=== PATIENT | female | born 1980 | race Caucasian/White ===

== ENCOUNTER 2017-03-22 04:57 | Emergency (ER) | payer MEDICARE, MEDICAID ==
[~2017-03-22] VITALS: Ht 167.6 cm; Wt 90.0 kg
[~2017-03-22 04:57] MED LIST: BACL-19 PO; BENZ1TAB61 PO; CITA20TA9 PO; DIAZ10TA PO; MELO15TA24 PO; ONDA4TAB7 PO; PANT40TA3 PO; PROM12.553 RC; ZIPR80CA2 PO
[2017-03-22] MEDS ORDERED: ONDANSETRON ODT 8 MG ONE (05:20)
[2017-03-22] MEDS ORDERED: ONDANSETRON ODT 4 MG PO ONE (05:30)
[2017-03-22 06:02] LABS: ASPARTATE AMINO TRANSFERASE 15 U/L (15-37); BLOOD UREA NITROGEN 10 mg/dL (7-18)
[2017-03-22] MEDS ORDERED: POTASSIUM CHLORIDE 20 MEQ TAB.ER.PRT ONE (06:25)
[2017-03-22] MEDS ORDERED: POTASSIUM CHLORIDE 20 MEQ TAB.ER.PRT PO ONE (06:30)
[2017-03-22] MEDS ORDERED: POTASSIUM CHLORIDE 20 MEQ in SODIUM CHLORIDE 0.9% 250 ML IV ONE (06:30)
[2017-03-22] MEDS ORDERED: SODIUM CHLORIDE 0.9% 1,000ML IVBOLUS ONE (06:30)
[2017-03-22 06:33] LABS: HEMATOCRIT 42.1 % (34.6-47.8); HEMOGLOBIN 14.1 g/dL (11.7-16.4); WHITE BLOOD COUNT 14.8 x10^3/uL (3.4-10)
[2017-03-22] MEDS ORDERED: PROCHLORPERAZINE 5 MG/ML, 2ML IM ONE (07:00)
[2017-03-22] MEDS ORDERED: HYDROmorphone 1 MG/ML, 1ML IV ONE (07:00)
[2017-03-22] MEDS ORDERED: HYDROmorphone 1 MG/ML, 1ML ONE (07:13)
[2017-03-22] MEDS ORDERED: PROCHLORPERAZINE 5 MG/ML, 2ML ONE (07:13)
[2017-03-22 07:24] VITALS: BP 143/89
[2017-03-22] MEDS ORDERED: PROCHLORPERAZINE 5 MG/ML, 2ML IVPush ONE (07:30)
== END 2017-03-22 08:11 | disposition home or self-care (01) ==
LOC: ED 05:30
DX: R10.9 Unspecified abdominal pain (principal); R11.2 Nausea with vomiting, unspecified; R19.7 Diarrhea, unspecified; Z87.891 Personal history of nicotine dependence
CPT/HCPCS: 36415; 80053; 83690; 85025; 96361; 96374; 96375; 99285; J0780; J1170; J7030; Q0162

== ENCOUNTER 2017-03-23 22:19 | Emergency (ER) | payer MEDICARE, MEDICAID ==
[~2017-03-23] VITALS: Ht 175.3 cm; Wt 86.2 kg
[2017-03-23 22:59] LABS: HEMATOCRIT 44.9 % (34.6-47.8); HEMOGLOBIN 14.9 g/dL (11.7-16.4); WHITE BLOOD COUNT 12.7 x10^3/uL (3.4-10)
[2017-03-23] MEDS ORDERED: KETOROLAC 30 MG/1 ML IVPush ONE (23:00)
[2017-03-23] MEDS ORDERED: SODIUM CHLORIDE 0.9% 1,000ML IVBOLUS ONE (23:00)
[2017-03-23] MEDS ORDERED: ONDANSETRON 2MG/ML, 2ML ONE (23:00)
[2017-03-23] MEDS ORDERED: KETOROLAC 30 MG/1 ML ONE (23:00)
[2017-03-23] MEDS ORDERED: ONDANSETRON 2MG/ML, 2ML IVPush ONE (23:00)
[2017-03-23 23:03] LABS: ASPARTATE AMINO TRANSFERASE 15 U/L (15-37); BLOOD UREA NITROGEN 8 mg/dL (7-18)
[2017-03-23] MEDS ORDERED: ZIPRASIDONE 20 MG INJ IM ONE ×2 (23:29→23:30)
[2017-03-24 00:18] LABS: PATH.CAST-FLAG NOT PRESENT; SPERM-FLAG NOT PRESENT; SRC-FLAG NOT PRESENT; XTAL-FLAG NOT PRESENT; YLC-FLAG NOT PRESENT
[2017-03-24] MEDS ORDERED: ONDANSETRON 2MG/ML, 2ML ONE (00:59)
[2017-03-24] MEDS ORDERED: MORPHINE SULFATE 4 MG/ML, 1ML ONE (00:59)
[2017-03-24] MEDS ORDERED: ONDANSETRON 2MG/ML, 2ML IVPush ONE (01:00)
[2017-03-24] MEDS ORDERED: MORPHINE SULFATE 4 MG/ML, 1ML IVPush PRN (01:00)
[2017-03-24 01:22] VITALS: BP 159/90
== END 2017-03-24 01:56 | disposition home or self-care (01) ==
LOC: ED 03-24 00:51
DX: A09 Infectious gastroenteritis and colitis, unspecified (principal); Z88.0 Allergy status to penicillin; Z87.891 Personal history of nicotine dependence
CPT/HCPCS: 36415; 80053; 81001; 83690; 84703; 85025; 87086; 96361; 96372; 96374; 96375; 96376; 99284; J1885; J2405; J3486; J7030

== ENCOUNTER 2019-05-10 18:27 | Emergency (ER) | payer MEDICARE, MEDICAID ==
[~2019-05-10] VITALS: Ht 162.6 cm; Wt 90.0 kg
[2019-05-10] MEDS ORDERED: PROMETHAZINE 25 MG/ML, 1ML IM ONE (19:00)
[2019-05-10] MEDS ORDERED: SODIUM CHLORIDE 0.9% 1,000ML IVBOLUS ONE ×2 (19:00→21:00)
[2019-05-10] MEDS ORDERED: MORPHINE SULFATE 4 MG/ML, 1ML IVPush PRN (19:00)
[2019-05-10] MEDS ORDERED: MORPHINE SULFATE 4 MG/ML, 1ML ONE (19:01)
[2019-05-10] MEDS ORDERED: PROMETHAZINE 25 MG/ML, 1ML ONE (19:01)
[2019-05-10 19:38] LABS: BASOPHILS % (AUTO) 0 % (0-1); EOSINOPHILS % (AUTO) 0 % (1-7); LYMPHOCYTES % (AUTO) 9 % (22-44); MD NO; MEAN CORPUSCULAR HGB CONC 33.2 g/dL (32.4-35.8); MEAN CORPUSCULAR VOLUME 96.4 fL (80-100); MONOCYTES # (AUTO) 0.27 x10^3/uL (0.2-0.8); MONOCYTES % (AUTO) 3 % (2-9); NEUTROPHILS % (AUTO) 88 % (42-75); PLATELET COUNT 235 x10^3/uL (130-400); RED BLOOD COUNT 3.99 x10^6/uL (3.82-5.3); RED CELL DISTRIBUTION WIDTH 13.2 % (9.6-15.2)
[2019-05-10 19:49] LABS: ALANINE AMINOTRANSFERASE 10 U/L (12-78); ALBUMIN 3.5 g/dL (3.4-5.0); ANION GAP 10 mmol/L (5-15); CALCIUM 8.9 mg/dL (8.5-10.1); CHLORIDE 114 mmol/L (98-107); CREATININE 1.21 mg/dL (0.55-1.02)
[2019-05-10 19:51] LABS: ALKALINE PHOSPHATASE 57 U/L (45-117); BILIRUBIN,TOTAL 0.5 mg/dL (0.2-1.0); TOTAL PROTEIN 7.3 g/dL (6.4-8.2)
[2019-05-10 20:46] LABS: RAPID INFLUENZA A Negative (Negative); RAPID INFLUENZA B Negative (Negative)
[2019-05-10 21:27] LABS: CULTURE INDICATED? YES; MICROSCOPIC INDICATED
--- NOTE | 2019-05-10 22:22 | NUR ---
pt given 2 8 oz cups of water for po challenge, pt did not have any nausea or vomiting after fluids.
[2019-05-10 22:30] VITALS: BP 124/74
== END 2019-05-10 22:33 | disposition home or self-care (01) ==
LOC: ED 20:57
DX: E86.0 Dehydration (principal); R19.7 Diarrhea, unspecified; R11.2 Nausea with vomiting, unspecified; R10.84 Generalized abdominal pain; F31.9 Bipolar disorder, unspecified; Z87.891 Personal history of nicotine dependence
CPT/HCPCS: 36415; 80053; 81001; 83690; 85025; 87086; 87400; 96361; 96372; 96374; 99283; J2270; J2550; J7030

== ENCOUNTER 2019-06-27 21:01 | Emergency (ER) | payer MEDICARE, MEDICAID ==
[~2019-06-27] VITALS: Ht 167.6 cm; Wt 90.9 kg
[~2019-06-27 21:01] MED LIST changes: +METO10TA82 PO
[2019-06-27] MEDS ORDERED: SODIUM CHLORIDE 0.9% 1,000ML IVBOLUS ONE (21:30)
[2019-06-27] MEDS ORDERED: FAMOTIDINE 20 MG/2 ML IV ONE (21:30)
[2019-06-27] MEDS ORDERED: MORPHINE SULFATE 4 MG/ML, 1ML IVPush PRN (21:30)
[2019-06-27] MEDS ORDERED: SODIUM CHLORIDE FLUSH 10ML SYR IVF ONE (21:30)
[2019-06-27] MEDS ORDERED: ONDANSETRON 2MG/ML, 2ML IVPush ONE (21:30)
[2019-06-27] MEDS ORDERED: PROMETHAZINE 25 MG/ML, 1ML IM ONE (21:30)
[2019-06-27 21:47] LABS: BASOPHILS % (AUTO) 0 % (0-1); EOSINOPHILS # (AUTO) 0.13 x10^3/uL (0-0.4); EOSINOPHILS % (AUTO) 1 % (1-7); LYMPHOCYTES # (AUTO) 1.02 x10^3/uL (1-3.4); LYMPHOCYTES % (AUTO) 10 % (22-44); MD NO; MEAN CORPUSCULAR HEMOGLOBIN 32.2 pg (27.0-34.8); MEAN CORPUSCULAR HGB CONC 33.1 g/dL (32.4-35.8); MEAN CORPUSCULAR VOLUME 97.2 fL (80-100); MEAN PLATELET VOLUME 9.2 fL (7.4-10.4); MONOCYTES % (AUTO) 3 % (2-9); NEUTROPHILS # (AUTO) 9.11 x10^3/uL (1.8-6.8); NEUTROPHILS % (AUTO) 86 % (42-75); PLATELET COUNT 273 x10^3/uL (130-400); RED BLOOD COUNT 4.37 x10^6/uL (3.82-5.3); RED CELL DISTRIBUTION WIDTH 12.8 % (9.6-15.2)
[2019-06-27 21:58] LABS: ANION GAP 8 mmol/L (5-15); CALCIUM 9.6 mg/dL (8.5-10.1); CHLORIDE 110 mmol/L (98-107)
[2019-06-27] MEDS ORDERED: PROMETHAZINE 25 MG/ML, 1ML ONE (21:59)
[2019-06-27] MEDS ORDERED: MORPHINE SULFATE 4 MG/ML, 1ML ONE (22:00)
[2019-06-27] MEDS ORDERED: FAMOTIDINE 20 MG/2 ML ONE (22:00)
[2019-06-27] MEDS ORDERED: ONDANSETRON 2MG/ML, 2ML ONE (22:00)
[2019-06-27 22:05] LABS: ALANINE AMINOTRANSFERASE 18 U/L (12-78); ALKALINE PHOSPHATASE 58 U/L (45-117); BILIRUBIN,TOTAL 0.7 mg/dL (0.2-1.0); CREATININE 1.27 mg/dL (0.55-1.02); TOTAL PROTEIN 8.3 g/dL (6.4-8.2)
[2019-06-27 23:21] LABS: MICROSCOPIC INDICATED
[2019-06-27 23:25] LABS: CULTURE INDICATED? NO
[2019-06-27 23:53] VITALS: BP 124/74
== END 2019-06-27 23:57 | disposition home or self-care (01) ==
LOC: ED 23:51
DX: R10.84 Generalized abdominal pain (principal); E86.0 Dehydration; R11.2 Nausea with vomiting, unspecified; F31.9 Bipolar disorder, unspecified; Z90.49 Acquired absence of other specified parts of digestive tract
CPT/HCPCS: 36415; 80053; 80307; 81001; 83690; 84703; 85025; 96361; 96372; 96374; 96375; 99283; J2270; J2405; J2550; J3490; J7030

== ENCOUNTER 2019-10-18 15:28 | Emergency (ER) | payer MEDICARE, MEDICAID ==
[~2019-10-18] VITALS: Ht 167.6 cm; Wt 90.0 kg
--- NOTE | 2019-10-18 15:33 | NUR ---
PT BIB [facility] FOR THE PAST 9 DAYS. PT HAS CHRONIC COUGH. HX OF SMOKING.PROVIDER IS BEDSIDE FOR ASSESSMENT
[2019-10-18] MEDS ORDERED: KETOROLAC 30 MG/1 ML ONE (15:39)
[2019-10-18] MEDS ORDERED: ONDANSETRON 2MG/ML, 2ML ONE ×2 (15:39→15:47)
[2019-10-18] MEDS ORDERED: MAALOX/HYOSCYAMINE/LIDOCAINE 45 ML BTL ONE (15:41)
[2019-10-18] MEDS ORDERED: KETOROLAC 30 MG/1 ML IVPush ONE (16:00)
[2019-10-18] MEDS ORDERED: ONDANSETRON 2MG/ML, 2ML IVPush ONE (16:00)
[2019-10-18] MEDS ORDERED: MAALOX/HYOSCYAMINE/LIDOCAINE 45 ML BTL PO ONE (16:00)
[2019-10-18] MEDS ORDERED: SODIUM CHLORIDE 0.9% 1,000ML IVBOLUS ONE (16:00)
[2019-10-18] MEDS ORDERED: SODIUM CHLORIDE FLUSH 10ML SYR IVF ONE (16:00)
[2019-10-18 16:04] LABS: BASOPHILS # (AUTO) 0.06 x10^3/uL (0-0.1); BASOPHILS % (AUTO) 1 % (0-1); EOSINOPHILS # (AUTO) 0.22 x10^3/uL (0-0.4); EOSINOPHILS % (AUTO) 3 % (1-7); LYMPHOCYTES # (AUTO) 1.95 x10^3/uL (1-3.4); LYMPHOCYTES % (AUTO) 26 % (22-44); MD NO; MEAN CORPUSCULAR HEMOGLOBIN 31.1 pg (27.0-34.8); MEAN CORPUSCULAR HGB CONC 33.5 g/dL (32.4-35.8); MEAN CORPUSCULAR VOLUME 92.8 fL (80-100); MEAN PLATELET VOLUME 9.4 fL (7.4-10.4); MONOCYTES % (AUTO) 7 % (2-9); NEUTROPHILS # (AUTO) 4.88 x10^3/uL (1.8-6.8); NEUTROPHILS % (AUTO) 64 % (42-75); PLATELET COUNT 269 x10^3/uL (130-400); RED BLOOD COUNT 4.82 x10^6/uL (3.82-5.3); RED CELL DISTRIBUTION WIDTH 12.9 % (9.6-15.2)
[2019-10-18 16:15] LABS: ALANINE AMINOTRANSFERASE 16 U/L (12-78); ANION GAP 5 mmol/L (5-15); CALCIUM 9.7 mg/dL (8.5-10.1); CHLORIDE 105 mmol/L (98-107)
[2019-10-18 16:20] LABS: ALKALINE PHOSPHATASE 52 U/L (45-117); BILIRUBIN,TOTAL 0.5 mg/dL (0.2-1.0); CREATININE 1.01 mg/dL (0.55-1.02); TOTAL PROTEIN 8.4 g/dL (6.4-8.2)
[2019-10-18 17:05] VITALS: BP 96/61
[2019-10-18] MEDS ORDERED: PROMETHAZINE 25 MG/ML, 1ML ONE (17:08)
[2019-10-18 17:17] LABS: MICROSCOPIC INDICATED
[2019-10-18 17:18] LABS: CULTURE INDICATED? YES
[2019-10-18] MEDS ORDERED: PROMETHAZINE 25 MG/ML, 1ML IM ONE (17:30)
--- NOTE | 2019-10-18 17:35 | NUR ---
TASK RN: ALL RESULTS ARE BACK AT THIS TIME. CHART UP FOR RECHECK.
== END 2019-10-18 18:42 | disposition home or self-care (01) ==
LOC: ED 16:10
DX: K29.00 Acute gastritis without bleeding (principal); R11.2 Nausea with vomiting, unspecified; Z90.49 Acquired absence of other specified parts of digestive tract; Z87.891 Personal history of nicotine dependence; K21.9 Gastro-esophageal reflux disease without esophagitis
CPT/HCPCS: 36415; 80053; 81001; 83690; 84703; 85025; 87086; 96361; 96372; 96374; 96375; 99284; J1885; J2405; J2550; J7030

== ENCOUNTER 2019-10-19 08:05 | Emergency (ER) | payer MEDICARE, MEDICAID ==
[~2019-10-19] VITALS: Ht 167.6 cm; Wt 91.0 kg
[2019-10-19] MEDS ORDERED: ONDANSETRON 2MG/ML, 2ML ONE (08:21)
[2019-10-19] MEDS ORDERED: FAMOTIDINE 20 MG/2 ML ONE (08:22)
[2019-10-19] MEDS ORDERED: SODIUM CHLORIDE 0.9% 1,000ML IVBOLUS ONE ×2 (08:30→09:30)
[2019-10-19] MEDS ORDERED: ONDANSETRON 2MG/ML, 2ML IVPush ONE (08:30)
[2019-10-19] MEDS ORDERED: SODIUM CHLORIDE FLUSH 10ML SYR IVF ONE (08:30)
[2019-10-19] MEDS ORDERED: FAMOTIDINE 20 MG/2 ML IV ONE (08:30)
--- NOTE | 2019-10-19 08:32 | NUR ---
PT BIBA FROM HOME FOR N/V/D X9 DAYS. PT WAS SEEN HERE YESTERDAY FOR SAME AND DX WTIH GASTRITIS. PT STATES SHE IS UNABLE TO KEEP PO PHENERGAN DOWN. PT PRESENTS VOMITING DRAMATICALLY WITH SMALL AMOUNT OF BILE. IV ESTABLISHED EN ROUTE AND 250ML NS AND 12.5MG PHENERGAN ADMINISTERED CONSULTING SERVICES MANAGER. UPON ARRIVAL, PT CONNECTED TO ALL MONITORS. HR 80S-120S, ALL OTHER VSS ON RA. DR. BARCLAY TO BS FOR ASSESSMENT. ORDERS RECEIVED. TRACK LAMINATING MACHINE TENDER TO BS TO COMPLETE BLOOD DRAW. PT MEDICATED PER SEP. PT AMBULATORY TO RR BUT IS UNABLE TO PROVIDE URINE SAMPLE. AWAITING LAB RESULTS. NO ENESD EXPRESSED. CALL LIGHT WITHIN REACH.
[2019-10-19 08:42] LABS: BASOPHILS # (AUTO) 0.07 x10^3/uL (0-0.1); BASOPHILS % (AUTO) 1 % (0-1); EOSINOPHILS # (AUTO) 0.25 x10^3/uL (0-0.4); EOSINOPHILS % (AUTO) 3 % (1-7); LYMPHOCYTES # (AUTO) 2.16 x10^3/uL (1-3.4); LYMPHOCYTES % (AUTO) 23 % (22-44); MD NO; MEAN CORPUSCULAR HEMOGLOBIN 31.3 pg (27.0-34.8); MEAN CORPUSCULAR HGB CONC 33.3 g/dL (32.4-35.8); MEAN CORPUSCULAR VOLUME 94.2 fL (80-100); MEAN PLATELET VOLUME 9.1 fL (7.4-10.4); MONOCYTES # (AUTO) 0.54 x10^3/uL (0.2-0.8); MONOCYTES % (AUTO) 6 % (2-9); NEUTROPHILS # (AUTO) 6.56 x10^3/uL (1.8-6.8); NEUTROPHILS % (AUTO) 69 % (42-75); PLATELET COUNT 248 x10^3/uL (130-400); RED BLOOD COUNT 4.61 x10^6/uL (3.82-5.3); RED CELL DISTRIBUTION WIDTH 12.9 % (9.6-15.2)
[2019-10-19 08:50] LABS: ALANINE AMINOTRANSFERASE 14 U/L (12-78); ALBUMIN 3.7 g/dL (3.4-5.0); ANION GAP 6 mmol/L (5-15); CALCIUM 8.9 mg/dL (8.5-10.1); CHLORIDE 109 mmol/L (98-107); CREATININE 1.03 mg/dL (0.55-1.02)
[2019-10-19 08:54] LABS: ALKALINE PHOSPHATASE 50 U/L (45-117); BILIRUBIN,TOTAL 0.5 mg/dL (0.2-1.0)
[2019-10-19] MEDS ORDERED: MAALOX/HYOSCYAMINE/LIDOCAINE 45 ML BTL PO ONE (09:00)
[2019-10-19] MEDS ORDERED: HALOPERIDOL 5 MG/ML ONE (09:23)
[2019-10-19] MEDS ORDERED: HALOPERIDOL 5 MG/ML IV ONE (09:30)
--- NOTE | 2019-10-19 09:30 | NUR ---
PT CONTINUES TO VOMIT. EDMD SAHM NOTIFIED. NEW ORDERS RECEIVED. PT MEDICATED PER SEP. VSS. NO NEEDS EXPRESSED AT THIS TIME. CALL LIGHT WITHIN REACH. WILL CONTIUE TO MONITOR.
--- NOTE | 2019-10-19 09:31 | NUR ---
PT STILL UNABLE TO PROVIDE UA OR STOOL SAMPLE.
[2019-10-19] MEDS ORDERED: KETOROLAC 30 MG/1 ML IVPush ONE (10:00)
--- NOTE | 2019-10-19 10:05 | NUR ---
pt reports feeling "jittery" after haldol admin, but pt is no longer nauseated or vomiting. vss. no needs expressed. pt medicated for pain per mar.
[2019-10-19] MEDS ORDERED: KETOROLAC 30 MG/1 ML ONE (10:07)
[2019-10-19 10:33] LABS: MICROSCOPIC INDICATED
[2019-10-19 10:34] LABS: CULTURE INDICATED? YES
[2019-10-19 11:10] LABS: AMPHETAMINE SCREEN, URINE Negative (Negative); BARBITURATE SCREEN, URINE Negative (Negative); BENZODIAZEPINE SCREEN, URINE Positive (Negative); CANNABINOID SCREEN, URINE Positive (Negative); COCAINE SCREEN, URINE Negative (Negative); METHADONE SCREEN, URINE Negative (Negative); OPIATE SCREEN, URINE Negative (Negative)
[2019-10-19 11:20] VITALS: BP 109/69
== END 2019-10-19 11:38 | disposition home or self-care (01) ==
LOC: ED 08:45
DX: K29.00 Acute gastritis without bleeding (principal); N30.00 Acute cystitis without hematuria; R11.2 Nausea with vomiting, unspecified; K21.9 Gastro-esophageal reflux disease without esophagitis; Z90.89 Acquired absence of other organs; Z87.891 Personal history of nicotine dependence
CPT/HCPCS: 36415; 80053; 80307; 81001; 83690; 84703; 85025; 87086; 96361; 96374; 96375; 99284; J1630; J1885; J2405; J3490; J7030

== ENCOUNTER 2020-12-11 19:25 | Emergency (ER) | payer MEDICAID, MEDICARE ==
[~2020-12-11] VITALS: Ht 167.6 cm; Wt 102.0 kg
[2020-12-11 19:28] VITALS: BP 116/63
--- NOTE | 2020-12-11 19:43 | NUR ---
PT CAME INTO ED TONIGHT FOR A SPIDER BITE ON THE BACK OF THE RIGHT LEG. PT REPORTS IT HAPPENED "A LITTLE BIT AGO" PT CHANGED INTO GOWN. NAD, BED IN LOWEST, RAILS ENGAGED, PROIVDED WARM BLANKETS FOR COMFORT. FAMILY AT . [facility].
== END 2020-12-11 20:34 | disposition home or self-care (01) ==
LOC: ED 20:33
DX: L03.115 Cellulitis of right lower limb (principal); Z87.891 Personal history of nicotine dependence
CPT/HCPCS: 99283